=== PATIENT | female | born 1985 | race American Indian/Alaskan Native ===

== ENCOUNTER 2018-07-03 21:26 | Emergency (ER) | payer OTHER ==
[2018-07-03] MEDS ORDERED: DELTASONE PO ONE (22:22)
[2018-07-03] MEDS ORDERED: IBUPROFEN PO ONE (22:23)
--- NOTE | 2018-07-03 22:49 | XRay Report ---
PROCEDURE: XR CHEST 1V AP TECHNIQUE: Chest radiograph , single frontal view. HISTORY: dyspnea COMPARISONS: None . FINDINGS: Heart: Normal. Mediastinum/Vessels: Normal. Lungs/Pleural space: Normal. Bony thorax: No acute osseous abnormality. Life support devices: None. IMPRESSION: No acute cardiopulmonary abnormality. This document is electronically signed by Nicole Terry MD., Jul 03 2018 10:47:06 PM ET
[2018-07-03 23:04] LABS: Basophils % (Auto) 0.7 % (0.0-1.8); Eosinophils % (Auto) 0.4 % (0.0-4.3); Hematocrit 36.4 % (30.3-42.9); Hemoglobin 12.1 gm/dl (10.1-14.3); Mean Corpuscular HGB Conc 33 % (30-34); Mean Corpuscular Volume 87 fl (79-97); Monocytes # (Auto) 0.5 K/mm3 (0.0-0.8); Monocytes % (Auto) 9.3 % (0.0-7.3); Platelet Count 219 K/mm3 (140-440); Red Blood Count 4.19 M/mm3 (3.65-5.03); Red Cell Distribution Width 13.9 % (13.2-15.2)
[2018-07-03 23:25] VITALS: BP 113/69
[2018-07-03 23:27] LABS: BUN/Creatinine Ratio 13; Blood Urea Nitrogen 12 mg/dL (7-17); Calcium 9.1 mg/dL (8.4-10.2); Hemolysis Index 3
--- NOTE | 2018-07-03 23:42 | Emergency Department Report ---
ED Chest Pain HPI - General Chief Complaint: Dyspnea/Respdistress Stated Complaint: CHEST PAIN/MERY Time Seen by Provider: 07/03/18 21:48 Source: patient Mode of arrival: Ambulatory Limitations: No Limitations - History of Present Illness Initial Comments: Ms. Cadena is a healthy 33 yo female who presents with chest pain, shortness of breath and dry cough for 2 days. Her 2 year old daughter had been diagnosed with bronchial asthma/pneumonia recently She denies fever. She has central chest soreness. MD Complaint: chest pain -: Gradual, days(s) (2) Onset: during rest Pain Location: substernal Pain Radiation: none Severity: moderate Severity scale (0 -10): 5 Quality: sharp Consistency: constant Improves With: nothing Worsens With: nothing Context: recent illness Other Symptoms: cough - Related Data Previous Rx's Medication Instructions Recorded Last Taken Type predniSONE [Deltasone] 50 mg PO QDAY 5 Days #5 tab 07/03/18 Unknown Rx Allergies Allergy/AdvReac Type Severity Reaction Status Date / Time Penicillins Allergy Unknown Verified 07/03/18 22:18 Sulfa (Sulfonamide Allergy Unknown Verified 07/03/18 22:18 Antibiotics) sulfamethoxazole Allergy Unknown Verified 07/03/18 22:18 [From Bactrim] trimethoprim [From Bactrim] Allergy Unknown Verified 07/03/18 22:18 Heart Score - HEART Score History: Slightly suspicious EKG: Normal Age: < 45 Risk factors: No known risk factors Troponin: < normal limit HEART Score: 0 ED Review of Systems ROS: Stated complaint: CHEST PAIN/MERY Other details as noted in HPI Comment: All other systems reviewed and negative Constitutional: malaise. denies: fever Respiratory: cough Cardiovascular: chest pain ED Past Medical Hx - Past Medical History Previous Medical History?: No - Surgical History Past Surgical History?: No - Social History Smoking Status: Never Smoker Substance Use Type: None - Medications Home Medications: Home Medications Medication Instructions Recorded Confirmed Last Taken Type predniSONE [Deltasone] 50 mg PO QDAY 5 Days #5 tab 07/03/18 Unknown Rx ED Physical Exam - General Limitations: No Limitations General appearance: alert, in no apparent distress - Head Head exam: Present: atraumatic, normocephalic - Eye Eye exam: Present: normal appearance - ENT ENT exam: Present: mucous membranes moist - Neck Neck exam: Present: normal inspection, full ROM - Respiratory Respiratory exam: Present: normal lung sounds bilaterally. Absent: respiratory distress, wheezes, rales, rhonchi - Cardiovascular Cardiovascular Exam: Present: regular rate, normal rhythm, normal heart sounds. Absent: systolic murmur, diastolic murmur, rubs, gallop - GI/Abdominal GI/Abdominal exam: Present: soft, normal bowel sounds. Absent: distended, te nderness, guarding, rebound - Extremities Exam Extremities exam: Present: normal inspection - Back Exam Back exam: Present: normal inspection - Neurological Exam Neurological exam: Present: alert, oriented X3 - Psychiatric Psychiatric exam: Present: normal affect, normal mood - Skin Skin exam: Present: warm, dry, intact, normal color. Absent: rash ED Course Vital Signs 07/03/18 23:21 Temperature 97.9 F Pulse Rate 82 Respiratory 18 Rate Blood Pressure 113/69 Blood Pressure 113/69 [Left] O2 Sat by Pulse 99 Oximetry ED Medical Decision Making - Lab Data Result diagrams: 07/03/18 22:50 07/03/18 22:50 Laboratory Results - last 24 hr 07/03/18 07/03/18 07/03/18 22:50 22:50 22:50 WBC 5.8 RBC 4.19 Hgb 12.1 Hct 36.4 MCV 87 MCH 29 MCHC 33 RDW 13.9 Plt Count 219 Lymph % (Auto) 17.0 [place] % (Auto) 9.3 H Eos % (Auto) 0.4 Baso % (Auto) 0.7 Lymph # 1.0 L [place] # 0.5 Eos # 0.0 Baso # 0.0 Seg Neutrophils % 72.6 H Seg Neutrophils # 4.2 D-Dimer 150.46 Sodium 140 Potassium 3.9 Chloride 102.4 Carbon Dioxide 24 Anion Gap 18 BUN 12 Creatinine 0.9 Estimated GFR > 60 BUN/Creatinine Ratio 13 Glucose 91 Calcium 9.1 Troponin T < 0.010 - EKG Data EKG shows normal: sinus rhythm, axis, intervals, QRS complexes, ST-T waves Rate: normal - EKG Data Interpretation: no acute changes, normal EKG - Medical Decision Making Ms. Cadena is a young healthy 33-year-old female who presents with chest pain and cough. Normal d-dimer. Normal EKG. Normal chest x-ray. No indication of acute coronary syndrome, pericarditis or pulmonary embolism. No indication of pneumonia or pneumothorax. With history of sick contacts. She also works in a daycare. Suspect acute bronchitis. Prescribed prednisone. Critical care attestation.: If time is entered above; I have spent that time in minutes in the direct care of this critically ill patient, excluding procedure time. ED Disposition Clinical Impression: Acute bronchitis Disposition: DC- TO HOME OR SELFCARE Is pt being admited?: No Does the pt Need Aspirin: No Condition: Stable Instructions: Acute Bronchitis (ED) Prescriptions: predniSONE [Deltasone] 50 mg PO QDAY 5 Days #5 tab Referrals: KIESHA MATHEW MD [Primary Care Provider] - 3-5 Days Forms: Work/School Release Form(ED)
== END 2018-07-04 00:05 | disposition home or self-care (01) ==
LOC: ED 21:26
DX: J20.9 Acute bronchitis, unspecified (principal); Z88.0 Allergy status to penicillin; Z88.1 Allergy status to other antibiotic agents; Z88.2 Allergy status to sulfonamides
CPT/HCPCS: 36415; 71045; 80048; 84484; 85025; 85379; 93005; 93010; 99284; J7512